=== PATIENT | male | born 1940 | race Caucasian/White ===

== ENCOUNTER 2018-02-26 20:48 | Inpatient (IN) ==
[2018-02-26] MEDS ORDERED: LASIX IV ONE (21:26)
[2018-02-26] MEDS ORDERED: DUONEB (A & A) INH ONE (21:27)
[2018-02-26 21:30] LABS: BASO# 0.03 X1000 (0.0-0.2); BASO% 0.3 % (0.0-0.8); EOS% 1.1 % (0.0-10.0); HEMATOCRIT 31.4 % (42.0-52.0); HEMOGLOBIN 10.6 g/dL (14.0-18.0); IMM GRAN# 0.02 X1000 (0.0-0.04); IMM GRAN% 0.2 % (0.0-0.5); LYMPH# 0.64 X1000 (1.2-3.4); MCH 28.7 PG (27-31); MCHC 33.8 g/dL (33-37); MCV 85.1 FL (81-99); MONO# 0.72 X1000 (0.11-0.59); MONO% 7.8 % (1.7-9.3); MPV 11.7 FL (7.4-10.4); NEUT# 7.68 X1000 (1.4-6.5); NEUT% 83.6 % (42.2-75.2); PLT 115 X1000 (130-400); RBC 3.69 XMIL (4.7-6.1); RDW 13.2 % (11.5-14.5); WBC 9.19 X1000 (4.8-10.8)
[2018-02-26 22:35] LABS: INR 1.06; PROTIME 14.3 Seconds (11.0-16.0)
[2018-02-26 22:36] LABS: PTT 36.1 Seconds (22.3-41.8)
[2018-02-26 22:37] LABS: ALBUMIN 3.2 g/dL (3.5-5.0); CALCIUM 8.2 mg/dL (8.8-10.2); CREATININE 1.7 mg/dL (0.7-1.2); POTASSIUM 3.9 mmol/L (3.5-5.1); TOTAL BILIRUBIN 0.4 mg/dL (0.20-1.00); TOTAL PROTEIN 6.3 g/dL (6.3-8.3)
--- NOTE | 2018-02-26 22:37 | Diag Imaging Result Doc PS360 ---
CHEST-2 VIEWS - 02/26/2018 INDICATION: sob COMPARISON: 05/15/2017 FINDINGS: There is cardiomegaly and pulmonary vascular congestion. There are patchy ill-defined infiltrates in both lung bases. There are small bilateral pleural effusions. IMPRESSION: Pulmonary edema. Small bilateral pleural effusions. Electronically signed by Earl Lacy 02/26/2018 10:35 PM
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
[2018-02-26 23:08] LABS: CK INDEX 2.3 (0.0-2.5); CK-MB 5.6 ng/mL (0.0-5.0)
--- NOTE | 2018-02-27 00:05 | EKG Report ---
Test Performed on : 02/26/2018 9:55:43 PM Test Reason : sob Blood Pressure : / mmHG Vent. Rate : 087 BPM Atrial Rate : 122 BPM P-R Int : 000 ms QRS Dur : 124 ms QT Int : 386 ms P-R-T Axes : 000 -06 083 degrees QTc Int : 464 ms Atrial fibrillation. Cannot rule out Inferior infarct (cited on or before 08-JAN-2011) Abnormal ECG When compared with ECG of 22-MAR-2017 07:42, Atrial fibrillation. has replaced Junctional rhythm. Vent. rate has decreased BY 47 BPM Questionable change in initial forces of Inferior leads ST no longer depressed in Anterior leads Unconfirmed Result
[2018-02-27] MEDS ORDERED: NS 2,000 ML IV ONE (00:33)
[2018-02-27] MEDS ORDERED: PNEUMOVAX 23 IM ONE (01:05)
[2018-02-27] MEDS ORDERED: LIPITOR PO SCH (09:00)
[2018-02-27] MEDS ORDERED: NORVASC PO SCH (09:00)
[2018-02-27] MEDS ORDERED: LASIX PO SCH (09:00)
[2018-02-27] MEDS: JANUVIA PO SCH (09:25)
[2018-02-27] MEDS: LASIX IV SCH ×2 (09:25→21:56)
--- NOTE | 2018-02-27 09:30 | HISTORY AND PHYSICAL ---
PRIMARY CARE PHYSICIAN: Dr. Arturo Galeano. CHIEF COMPLAINT: Shortness of breath, cough, and bilateral lower extremity edema for 3 days that progressively worsened. HISTORY OF PRESENTING ILLNESS: This is a 77-year-old male who presents to [facility] ER with complaints of a 3-day history of shortness of breath, nonproductive coughing, and bilateral lower extremity edema. When he arrived, his O2 sat on room air was 90%. His laboratory data showed a BUN of 28 and a creatinine of 1.7. He has some chronic kidney disease, but this is a little above his baseline that appears to be around 1.3 to 1.5. His proBNP was 4261. Cardiac enzymes showed a creatine kinase of 241, a CK-MB of 5.60, troponin negative at 0.081. Chest x-ray showed pulmonary edema. Small bilateral pleural effusions. So, he is being admitted for further evaluation and treatment. PAST MEDICAL HISTORY: Diabetes type 2, dyslipidemia, hypertension, coronary artery disease, chronic kidney disease stage 3, presumed CHF and atrial fibrillation. PAST SURGICAL HISTORY: CABG and heart stents x3. FAMILY HISTORY: Reviewed and noncontributory. SOCIAL HISTORY: He currently lives with family. He was a previous smoker of a pack a day for 20 years but has been quit for over 20 years. Denies any alcohol or illicit drug use. ALLERGIES: He has no known drug allergies. HOME MEDICATIONS: 1. Amlodipine/atorvastatin 10/10, 1 p.o. daily. 2. Lasix 20 mg p.o. daily. 3. Januvia 100 mg p.o. daily. 4. We will hold his p.o. Lasix at this time as he will be receiving IV Lasix. LABORATORY DATA: White blood cell count of 9.19, hemoglobin 10.6, hematocrit 31.4, platelets 115,000. PT and INR of 14.3 and 1.06. Sodium of 135, potassium 3.9, chloride 95, CO2 of 28. BUN of 28, creatinine 1.7, glucose 221, creatine kinase 241, CK-MB of 5.60 with a troponin of 0.081. ProBNP of 4261. Chest x-ray showed pulmonary edema with small bilateral pleural effusions. EKG showed atrial fibrillation at 87. REVIEW OF SYSTEMS: He denied any fever, chills, blurred vision, dizziness, chest pain. He had a nonproductive cough, shortness of breath, bilateral lower extremity edema. He denied any abdominal pain, constipation, diarrhea, burning or hurting with urination. PHYSICAL EXAMINATION: VITAL SIGNS: On arrival, he had a temperature of 98.2, pulse of 89, respirations 20, blood pressure 158/70, saturating 90% on room air. Currently sating 93% to 96% on 3 L via nasal cannula. GENERAL: This is a 77-year-old male who is sitting up in the bed and answers questions appropriately. HEENT: Normocephalic, atraumatic. Normal ENT inspection. Oropharynx and nares are clear. EYES: Pupils are equal, round, and reactive to light and accommodation. Extraocular movements are intact. NECK: Normal inspection. Normal range of motion. LUNGS: With decreased breath sounds bilaterally. Equal lung expansion. Chest wall movement noted. O2 via nasal cannula currently in use. HEART: Irregular rhythm but rate controlled with atrial fibrillation in the 80s. No murmurs, rubs or gallops. ABDOMEN: Soft, nontender, nondistended. Bowel sounds are present x4 quadrants. MUSCULOSKELETAL: He has 5/5 strength x4 extremities. He is noted to have 2+ pitting edema to bilateral lower extremities. NEUROLOGICAL: The cranial nerves 2-12 appear grossly intact. ASSESSMENT: 1. An acute congestive heart failure exacerbation. 2. [id number] kidney disease, stage 3. 3. Dyspnea. 4. Diabetes, type 2. PLAN: He was admitted to the medical unit at [facility], placed on telemetry, O2 per protocol, healthy heart diet. Echocardiogram will be obtained today. He is on Lasix 40 mg IV q.12. We will continue his home medications as previously identified. We will recheck a CBC, BMP in the a.m. Dictated by CHERYLE Aguirre for Geo Jeff MD cc: CHERYLE Aguirre MD Bharat K. Vakharia, MD
[2018-02-27 11:02] LABS: CALCIUM 8.5 mg/dL (8.8-10.2); CREATININE 1.5 mg/dL (0.7-1.2); POTASSIUM 3.9 mmol/L (3.5-5.1)
--- NOTE | 2018-02-27 11:05 | Diag Imaging Result Doc PS360 ---
EXAM: CHEST-2 VIEWS HISTORY: hypoxia TECHNIQUE: Chest two views COMPARISON: 02/26/2018 FINDINGS: There are small bilateral pleural effusions. There is mild central vascular distention. Sternal wires are present. The heart is borderline mildly prominent. There is atelectasis and possibly underlying infiltrates in the lung bases. The overall appearance is similar to the prior exam. IMPRESSION: Stable chest. Electronically signed by Esa Hooper 02/27/2018 11:03 AM
[2018-02-27] MEDS: MELATONIN PO SCH (21:56)
[2018-02-27] MEDS: LOPRESSOR PO SCH (21:56)
[2018-02-27] MEDS: ELIQUIS PO SCH (21:56)
--- NOTE | 2018-02-28 00:02 | ECHO REPORT ---
ORDER DATE: 02/27/2018 MEASUREMENTS: Left ventricular end-diastolic diameter 6.2, septal thickness 0.8, aortic root 3.5, left atrium 3.6. SUMMARY: 1. Technically difficult study due to limited acoustic window quality. 2. Aortic valve is trileaflet and opens normally on 2-dimensional images. Peak gradient across the aortic valve is 15 mmHg. Mitral, tricuspid, and pulmonic valves are without evidence of structural abnormality with mild mitral regurgitation and mild tricuspid regurgitation. The estimated systolic PA pressure by Doppler is 80 mmHg, suggesting severe pulmonary hypertension. The aortic root is normal in size. 3. Mild left ventricular enlargement with normal wall thickness demonstrated. Estimated left ventricular ejection fraction is approximately 35% in the setting of global hypokinesis. The left atrium is upper normal in size. The right atrium and right ventricle are normal in size with grossly preserved right ventricular systolic function. 4. No pericardial effusion. 5. Left pleural effusion noted. 6. Inferior vena cava not well demonstrated. CONCLUSIONS: 1. Technically difficult study. 2. Mild mitral regurgitation. 3. Mild tricuspid regurgitation with severe pulmonary hypertension by Doppler. 4. Mild left ventricular enlargement with estimated left ventricular ejection fraction 35%. 5. Left pleural effusion. cc: MD Emperatriz Richards CRNP
[2018-02-28] MEDS ORDERED: BLISTEX MEDICATED BERRY LIP BALM TOP ONE (01:51)
--- NOTE | 2018-02-28 04:18 | PROGRESS NOTE ---
DATE: 02/27/2018 The patient seen and examined by me [id number]. This patient came in complaining of shortness of breath, and he has been diagnosed with acute CHF exacerbation. He was discharged from [facility] last 03/29/2017, and then he visited Dr. Corley at his office on 04/05/2017. At that time, he was discharged with aspirin, Eliquis, metformin, glimepiride, losartan and metoprolol. This patient has not been taking most of those medications, and he is not quite sure why. I will put this patient back on Eliquis 2.5 mg p.o. twice a day because of his history of paroxysmal atrial fibrillation. Also I will put this patient back on metoprolol 25 mg twice a day to see how he does. I will hold any kind of ATIF inhibitor or ARBS because of his acute on chronic kidney disease. I will add aspirin to his medications as well. I will continue with furosemide twice a day because he has some pleural effusion and shortness of breath mostly at the lung bases. For now, he is full code. We already requested his information from his primary care doctor's office Dr. Galeano and Dr. Corley which is his world history teacher. cc: Geo Jeff MD
[2018-02-28 06:03] LABS: BASO# 0.02 X1000 (0.0-0.2); BASO% 0.2 % (0.0-0.8); EOS# 0.19 X1000 (0.0-0.7); HEMATOCRIT 29.7 % (42.0-52.0); HEMOGLOBIN 9.7 g/dL (14.0-18.0); IMM GRAN# 0.01 X1000 (0.0-0.04); IMM GRAN% 0.1 % (0.0-0.5); LYMPH# 0.69 X1000 (1.2-3.4); LYMPH% 7.2 % (20.5-51.1); MCH 28.3 PG (27-31); MCHC 32.7 g/dL (33-37); MCV 86.6 FL (81-99); MONO# 0.79 X1000 (0.11-0.59); MONO% 8.2 % (1.7-9.3); NEUT# 7.89 X1000 (1.4-6.5); NEUT% 82.3 % (42.2-75.2); PLT 217 X1000 (130-400); RBC 3.43 XMIL (4.7-6.1); RDW 13.1 % (11.5-14.5); WBC 9.59 X1000 (4.8-10.8)
[2018-02-28 06:33] LABS: CHOLESTEROL 111 mg/dL (0-200); HDL 53 mg/dL (35-55); LDL 41 mg/dL; TRIGLYCERIDES 85 mg/dL (39-160); VLDL 17 mg/dL
[2018-02-28 06:35] LABS: CALCIUM 8.7 mg/dL (8.8-10.2); CREATININE 1.6 mg/dL (0.7-1.2); POTASSIUM 4.1 mmol/L (3.5-5.1); TOTAL BILIRUBIN 0.4 mg/dL (0.20-1.00); TOTAL PROTEIN 6.8 g/dL (6.3-8.3)
--- NOTE | 2018-02-28 08:14 | Diag Imaging Result Doc PS360 ---
CHEST-PORTABLE - 02/28/2018 INDICATION: SOB COMPARISON: 02/27/2018 FINDINGS: Stable sternotomy wires. Heart size remains normal. Stable ill-defined central interstitial infiltrates bilaterally. Stable trace pleural effusions. No new infiltrates. IMPRESSION: No change from prior. Electronically signed by Earl Lacy 02/28/2018 8:11 AM
[2018-02-28] MEDS ORDERED: HYDROCHLOROTHIAZIDE PO SCH (09:00)
[2018-02-28] MEDS ORDERED: TRESIBA FLEXTOUCH U-100 SUBQ SCH (09:00)
[2018-02-28] MEDS ORDERED: COZAAR PO SCH (09:00)
[2018-02-28] MEDS: LOPRESSOR PO SCH ×2 (09:38→18:16)
[2018-02-28] MEDS: JANUVIA PO SCH (09:38)
[2018-02-28] MEDS: ELIQUIS PO SCH ×2 (09:39→21:21)
[2018-02-28] MEDS: LASIX IV SCH ×2 (09:39→18:16)
[2018-02-28] MEDS: NORVASC PO SCH (09:39)
[2018-02-28] MEDS: ASPIRIN PO SCH (09:39)
--- NOTE | 2018-02-28 10:25 | PROGRESS NOTE ---
DATE: 02/28/2018 SUBJECTIVE: Patient is complaining of shortness of breath. Today, this patient is having wheezing on top of his prolonged expiratory phase and some crackles mostly at the bases and midlung. He has a history of AFib. We ordered an echocardiogram that showed an ejection fraction of 35% in a setting of global hypokinesis. Last year around March, the ejection fraction was 40% to 45%. 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 Corley, and it looks like he has not been taking his medications as prescribed. Also, we contacted Dr. Galeano, to see what medications he has been on. He was missing his aspirin, Eliquis, metoprolol, and I think ARBs. Even though, we have been diuresing this patient, and we have a negative balance of 2.9 L so far, he is feeling worse. As per the patient, he has been told before, a long time ago, that he had COPD. He is wheezing today, and I read the H and P from before and nobody mentioned any history of COPD. I will put him on a trial of steroids, breathing treatment, and continue with the Ventimask for his oxygen. I will contact Cardiology Department to evaluate this patient as well since his ejection fraction is getting worse apparently. OBJECTIVE: Vital Signs: Temperature 98.1 degrees, pulse 80, respiratory rate 20, blood pressure 149/74, oxygen saturation 97% on a Venturi mask. HEENT: Head normocephalic. No trauma. PERRLA. Neck: Supple. He does have JVD. Central trachea. Chest: Decreased breath sounds globally with prolonged expiratory phase and expiratory wheezing and scattered, mid thoracic area and lower thoracic area crackles. Cardiovascular: Irregularly, irregular rate and rhythm. Abdomen: Soft, nontender, nondistended. No hepatosplenomegaly. Extremities: He has edema. No clubbing, no cyanosis. Neurological: Alert and oriented x3. No focal deficits. LABORATORY: WBC 9.5, hemoglobin 9.7, hematocrit 29.7, platelets 217,000. Sodium 134, potassium 4.1, chloride 95, bicarbonate 28, BUN 29 creatinine 1.6, glucose 180, calcium 8.7. ProBNP 4721, albumin 3. ASSESSMENT AND PLAN: 1. Congestive heart failure exacerbation. I will continue with Lasix twice a day intravenously. Echocardiogram has been performed and showed a worsening of his condition. His ejection fraction of 35% with global hypokinesis. He has a history of atrial fibrillation and he was not taking his medications. I have placed this patient back on metoprolol and blood thinners, aspirin. I have been holding a little bit the angiotensin-receptor blockers/ATIF inhibitors because of his acute on chronic kidney disease, but likely we can restart this medication soon. 2. Acute on chronic kidney disease. As above. I will monitor. Creatinine is getting better. BUN increased compared with yesterday, but stable. This is his baseline. 3. Shortness of breath, likely a combination of congestive heart failure and reactive airway. As per the patient, he used to smoke 40 years ago, but he stopped. Somebody told him that he has, at that time, COPD, but he is not getting treatment at home. Anyway, he is having some problems breathing, and he is wheezing and short of breath. I will put him on a trial of steroids to see how he does and breathing treatment as well. 4. Type 2 diabetes. Continue with the same management. 5. Atrial fibrillation. Continue with the same management. He has not been taking his medications as prescribed. 6. Hypertension, stable. 7. Dyslipidemia, aware. cc: Geo Jeff MD
[2018-02-28] MEDS: SOLU-MEDROL IV SCH ×2 (11:15→17:03)
[2018-02-28] MEDS: ZOSYN 3.375 GM in NS 50 ML IV SCH ×3 (11:15→22:25)
[2018-02-28] MEDS: XOPENEX NEB INH SCH ×4 (11:50→22:40)
[2018-02-28] MEDS: ATROVENT NEB INH SCH ×4 (11:50→22:40)
[2018-02-28] MEDS: ZYVOX 600 MG/D5W 600 MG/300 ML IVPB IV SCH ×2 (12:27→23:18)
--- NOTE | 2018-02-28 19:07 | CARDIOLOGY CONSULTATION ---
DATE: 02/28/2018 REQUESTING PHYSICIANS: Hospitalist service. REASON FOR CONSULTATION: Dyspnea, congestive heart failure, coronary heart disease. HISTORY OF PRESENT ILLNESS: Mr. Muhammad is a 77-year-old male who presented to the emergency room on February 26 with complaints of a few days of increasing dyspnea, nonproductive cough, and swelling of the lower extremities. Upon presentation, they did a pro-BNP level that came back elevated at 4261 and subsequently 4271. They checked troponin levels. They were 0.081. EKG initially showed sinus rhythm with some PACs. The EKG was initially reported as atrial fibrillation with controlled rate. There is a lot of artifact on the EKG. At any rate, the patient has been started in diuretics for heart failure because a chest x-ray showed pulmonary edema with small bilateral pleural effusions. He is also being treated with bronchodilators, steroids and antibiotics for decompensated COPD and possible pneumonia. The patient denies having any pain. His swelling is still present in the legs, not as bad. Since admission, he feels better today. PAST MEDICAL HISTORY: Positive for: 1. Coronary heart disease, severe. He has had a previous bypass. He was seen by Dr. Corley last time at the office in March 2017. The patient had had a big hiatus where he did not see any doctor. 2. He has diabetes mellitus type 2. 3. Hypertension. 4. Paroxysmal atrial fibrillation. 5. Carotid artery disease. 6. Previous falls, complains of dizziness. 7. COPD. 8. He also has chronic kidney disease. PAST SURGICAL HISTORY: Besides the bypass, he has had prostate surgery and cholecystectomy. SOCIAL HISTORY: He is . He has no children. He lives with his . He used to work for [employer]. He retired about 3-4 years ago. He has not smoked in awhile. FAMILY HISTORY: Noncontributory. HOME MEDICATIONS AT TIME OF THIS ADMISSION: 1. Amlodipine/atorvastatin 10/10 daily. 2. Furosemide 20 mg daily. 3. Insulin Tresiba 20 units daily. 4. Losartan/hydrochlorothiazide 50/12.5 daily. 5. Januvia 50 mg daily. ALLERGIES: He is not allergic to anything. REVIEW OF SYSTEMS: He is somewhat feeble. He does not do much physically speaking. He has developed aggressive swelling, cough and dyspnea lately. He was admitted to this hospital in March 2017 with atrial fibrillation, heart failure and pneumonia which required antibiotics for awhile. PHYSICAL EXAMINATION: Vital Signs: Blood pressure is 148/65, temperature 97.5, pulse 63, respirations 20. General: He is awake and alert. He is hard of hearing. HEENT: Unremarkable. Chest: Diminished breath sounds bilaterally with bilateral rhonchi. Some end expiratory wheezes. Heart sounds are slightly irregular and distant. Abdomen: Soft and nontender. Extremities: Show 1 to 2+ soft edema, pale. Extremities are somewhat cool. Pulses are diminished. Neurological: He follows commands. He is somewhat hard of hearing. BLOOD WORK: Sodium is 134, potassium 4.1, BUN 29, creatinine 1.6. IMPRESSION: 1. The patient presented to the hospital with what appears to be congestive heart failure, probably systolic. Previous echocardiogram has shown an ejection fraction of 60%. Now his echocardiogram during this time shows an ejection fraction of 35%. 2. Paroxysmal/permanent atrial fibrillation. 3. Chronic obstructive pulmonary disease decompensation, possible bronchitis, infectious. 4. Chronic kidney disease. 5. Previous multivessel coronary bypass surgery. 6. History of hypertension. 7. History of hyperlipidemia. 8. Diabetes mellitus type 2. RECOMMENDATIONS: At this point in time we will try to optimize his medical therapy. It seems like the main problem here is COPD decompensation, and that may be affecting his cardiovascular system. We will follow him and see how things go. At this point in time we are going to up- titrate his Lasix to compensate for his renal dysfunction, and we will see how he evolves over the next few days. cc: Mark Kidd MD
[2018-02-28] MEDS: MELATONIN PO SCH (21:20)
[2018-02-28] MEDS: LIPITOR PO SCH (21:20)
[2018-02-28] MEDS: HUMULIN R SUBQ SCH (21:21)
[2018-03-01] MEDS: TRESIBA FLEXTOUCH U-100 SUBQ SCH ×2 (00:49→21:15)
[2018-03-01] MEDS: HUMULIN R SUBQ SCH ×2 (00:50→06:26)
[2018-03-01] MEDS: SOLU-MEDROL IV SCH ×2 (01:29→09:38)
[2018-03-01] MEDS: LOPRESSOR PO SCH ×3 (01:29→17:38)
[2018-03-01] MEDS: ATROVENT NEB INH SCH ×6 (04:00→23:11)
[2018-03-01] MEDS: XOPENEX NEB INH SCH ×6 (04:00→23:11)
[2018-03-01] MEDS: LASIX IV SCH (05:52)
[2018-03-01] MEDS: ZOSYN 3.375 GM in NS 50 ML IV SCH (05:52)
[2018-03-01] MEDS: HUMULIN R (PARKWAY) SUBQ SCH ×4 (06:37→21:16)
[2018-03-01 06:53] LABS: CALCIUM 8.4 mg/dL (8.8-10.2); CREATININE 2.1 mg/dL (0.7-1.2); HEMATOCRIT 25.4 % (42.0-52.0); HEMOGLOBIN 8.5 g/dL (14.0-18.0); LYMPH# 0.26 X1000 (1.2-3.4); LYMPH% 4.3 % (20.5-51.1); MCH 28.1 PG (27-31); MCHC 33.5 g/dL (33-37); MCV 83.8 FL (81-99); MONO# 0.13 X1000 (0.11-0.59); MONO% 2.2 % (1.7-9.3); MPV 10.1 FL (7.4-10.4); NEUT# 5.59 X1000 (1.4-6.5); NEUT% 93.5 % (42.2-75.2); PLT 196 X1000 (130-400); POTASSIUM 4.4 mmol/L (3.5-5.1); RBC 3.03 XMIL (4.7-6.1); RDW 12.4 % (11.5-14.5); WBC 5.98 X1000 (4.8-10.8)
[2018-03-01 07:49] LABS: LYMPHS 8 % (21-51); MONO 2 % (1-9); SEGS 90 % (42-75)
[2018-03-01 07:50] LABS: ANISOCYTOSIS 1+; HYPOCHROM 1+; MICROCYTOSIS 1+
[2018-03-01] MEDS: NORVASC PO SCH (09:38)
[2018-03-01] MEDS: JANUVIA PO SCH (09:38)
[2018-03-01] MEDS: ELIQUIS PO SCH ×2 (09:38→21:17)
[2018-03-01] MEDS: ASPIRIN PO SCH (09:38)
[2018-03-01] MEDS: ZYVOX 600 MG/D5W 600 MG/300 ML IVPB IV SCH (09:39)
[2018-03-01] MEDS ORDERED: PRILOSEC PO ONE (12:13)
--- NOTE | 2018-03-01 14:10 | PROGRESS NOTE ---
DATE: 03/01/2018 SUBJECTIVE: The patient denies having any acute complaints this morning. He feels much better as compared to when he came in to the hospital. OBJECTIVE: Vital signs: Temperature is 97.5 degrees, pulse 66 per minute, respiratory rate 20 per minute, blood pressure 141/65, pulse oximetry 97% on 5 L of oxygen per nasal cannula. General: The patient is alert and oriented x3. He does not appear to be in any acute distress. Cardiovascular: First and second heart sounds are audible without any murmurs or gallops. Respiratory: Bilateral lung air entry is moderately decreased, and there are a few rales at bases bilaterally. No wheezing is present. Gastrointestinal: Abdomen is soft and nondistended. It is nontender on palpation and normal bowel sounds at present. Musculoskeletal No deformities are present. DIAGNOSTIC DATA: CBC showed hemoglobin of 8.5, hematocrit 25.4. The rest of the CBC is nondiagnostic. In comparison, his hemoglobin and hematocrit were 9.7 and 29.7 yesterday. His hemoglobin was 10.6 and hematocrit 31.4 on 02/26/2018. Chemistry shows creatinine of 2.1, and that is up from 1.5 on 02/27/2018. Chest x-ray done yesterday showed stable trace bilateral pleural effusions and no infiltrates. IMPRESSION: 1. Acute systolic congestive heart failure with left ventricular ejection fraction estimated at 35%. 2. Chronic atrial fibrillation. 3. Chronic obstructive pulmonary disease. 4. Acute kidney injury on chronic kidney disease stage 3. 5. Type 2 diabetes mellitus. 6. Hypertension. 7. Dyslipidemia. 8. Anemia that has been chronic but that is now worse during this hospital admission. PLAN: The patient has been on IV Lasix, and I am going to convert that to oral Lasix 40 mg daily since the patient has developed acute kidney injury and his creatinine levels have gone up to 2.1. We are not going to give him any IV fluids, however, because of congestive heart failure and with low ejection fraction. Furthermore, he has developed anemia during this hospital admission and because of this, I am going to discontinue aspirin. I would continue Eliquis, however, and start him on omeprazole 40 mg orally once daily. We will monitor his hemoglobin and hematocrit and have a repeat CBC along with BMP and magnesium levels tomorrow morning. The patient has been on Zosyn and Zyvox intravenously, but I do not see any reason why he should be on any antibiotics, and therefore, I am going to discontinue that. His COPD has been stable, and we are going to continue with albuterol/Atrovent nebulizer treatment, but I am going to discontinue Solu Medrol IV. His chronic atrial fibrillation and diabetes along with hypertension and dyslipidemia have been stable, and therefore, we are going to continue with current care. Further recommendations will be given as per outcome of these measures. cc: Christopher Cook MD
[2018-03-01] MEDS: APRESOLINE PO SCH (17:38)
[2018-03-01] MEDS: ISORDIL PO SCH (17:38)
[2018-03-01] MEDS: MELATONIN PO SCH (21:16)
[2018-03-01] MEDS: LIPITOR PO SCH (21:17)
--- NOTE | 2018-03-02 00:17 | CARDIOLOGY PROGRESS NOTE ---
DATE: 03/01/2018 SUBJECTIVE: Mr. Muhammad reports roughly stable shortness of breath. OBJECTIVE: He is afebrile. Heart rate is 61, his blood pressure is 140/67. Systolics have been in the 130s to 140s it appears. His I's and O's appear some negative on the order of 2.7 L for the course of the hospitalization.General: He is in no acute distress. Cardiovascular: He sounds to be in a regular rate and rhythm. I do not hear any obvious murmurs. He has trace to 1+ bilateral lower extremity edema. His chest exam sounds clear. He has stable trace pleural effusions and stable ill-defined interstitial infiltrates. That was on a study yesterday. LABORATORY DATA: Demonstrated a proBNP yesterday at 4271, his BUN and creatinine are at 45 and 2.1 which are slightly elevated. ASSESSMENT: Mr. Muhammad is a 77-year-old gentleman who presented with a reduced ejection fraction, chronic obstructive pulmonary disease exacerbation and chronic kidney disease. His BUN and creatinine ratio have increased with diuresis. I agree with backing off the level of the diuresis at this point. He is on a low dose of beta peter with metoprolol 12.5 q.8 hours. Considering his renal dysfunction I will initiate him on some hydralazine and nitrates. His blood pressure has been in the 130s to 140s. cc: Gabriele Perez MD
[2018-03-02] MEDS: LOPRESSOR PO SCH ×4 (01:32→17:18)
[2018-03-02] MEDS: ATROVENT NEB INH SCH ×5 (03:16→21:35)
[2018-03-02] MEDS: XOPENEX NEB INH SCH ×5 (03:16→21:35)
[2018-03-02] MEDS: PRILOSEC PO SCH (06:29)
[2018-03-02] MEDS: HUMULIN R (PARKWAY) SUBQ SCH ×4 (06:29→22:54)
[2018-03-02 06:34] LABS: HEMATOCRIT 25.4 % (42.0-52.0); HEMOGLOBIN 8.5 g/dL (14.0-18.0); IMM GRAN# 0.02 X1000 (0.0-0.04); IMM GRAN% 0.2 % (0.0-0.5); LYMPH# 0.43 X1000 (1.2-3.4); LYMPH% 3.9 % (20.5-51.1); MCH 28.1 PG (27-31); MCHC 33.5 g/dL (33-37); MCV 83.8 FL (81-99); MONO# 0.51 X1000 (0.11-0.59); MONO% 4.7 % (1.7-9.3); MPV 10.4 FL (7.4-10.4); NEUT# 9.99 X1000 (1.4-6.5); NEUT% 91.2 % (42.2-75.2); PLT 209 X1000 (130-400); RBC 3.03 XMIL (4.7-6.1); RDW 12.6 % (11.5-14.5); WBC 10.95 X1000 (4.8-10.8)
[2018-03-02 06:50] LABS: CALCIUM 8.5 mg/dL (8.8-10.2); CREATININE 2.3 mg/dL (0.7-1.2); MAGNESIUM 1.6 mg/dL (1.5-2.7); POTASSIUM 4.5 mmol/L (3.5-5.1)
[2018-03-02 07:09] LABS: LYMPHS 4 % (21-51); MONO 2 % (1-9); SEGS 94 % (42-75)
[2018-03-02] MEDS: ISORDIL PO SCH ×3 (08:40→17:19)
[2018-03-02] MEDS: LASIX PO SCH (08:41)
[2018-03-02] MEDS: APRESOLINE PO SCH ×3 (08:41→17:19)
[2018-03-02] MEDS: JANUVIA PO SCH (08:41)
[2018-03-02] MEDS: ELIQUIS PO SCH ×2 (08:41→22:18)
[2018-03-02] MEDS: NORVASC PO SCH (08:41)
--- NOTE | 2018-03-02 13:05 | PROGRESS NOTE ---
DATE: 03/02/2018 SUBJECTIVE: The patient denies having any acute complaints and feels much better this morning. OBJECTIVE: Vital Signs: Temperature 98.4 degrees, pulse 62 per minute, respiratory rate 20 per minute, blood pressure 138/64, pulse oximetry 100% on 2.5 L of oxygen via nasal cannula. General: The patient is alert and oriented x3. He does not appear to be in any acute distress. Cardiovascular System: First and second heart sounds are audible without any murmurs or gallops. Respiratory System: No respiratory distress noted. Bilateral lung air entry is good without any rales or rhonchi. Gastrointestinal system: Abdomen is soft and nondistended. Normal bowel sounds are present. DIAGNOSTIC DATA: CBC showed hemoglobin of 8.5 and hematocrit 25.4. In comparison, his CBC was exactly showing the same hemoglobin and hematocrit yesterday. His basic metabolic panel showed sodium levels of 128 and BUN 59 and creatinine 2.3, along with glucose levels of 247. The sodium levels actually went down yesterday from 132 to this morning 128. IMPRESSION: 1. Acute systolic congestive heart failure with left ventricular ejection fraction estimated at 35%. His congestive heart failure seems to have improved, and he appears to be slightly on the drier tender naphthalene side after which Lasix dosage was decreased. 2. Chronic atrial fibrillation that has remained stable. 3. Chronic obstructive pulmonary disease that is also stable. 4. Acute kidney injury on chronic kidney disease stage III. 5. Type 2 diabetes mellitus. 6. Hypertension. 7. Anemia that has been stable since yesterday. 8. Hyponatremia that is most likely secondary to intravenous diuretics. PLAN: 1. The patient appears to be stable as far as his congestive heart failure is concerned, and we will therefore continue with oral Lasix 40 mg daily. He does have some dehydration and acute kidney injury secondary to diuretics, but we will keep him like that and keep an eye on his fluid status. His atrial fibrillation and COPD have remained stable, and his diabetes and hypertension along with dyslipidemia are also stable, for which he will continue with current medications. He does have anemia that is now stable, because of which we are not going to take any further action. He will continue with Eliquis, and his aspirin has been discontinued. He will continue with omeprazole 40 mg daily for any possible gastritis. 2. The patient has hyponatremia that could be secondary to IV diuretics that he was getting. He has now a decreased dose of furosemide 40 mg daily, however. I am going to have repeat CBC and BMP in the morning tomorrow to monitor his hemoglobin and hematocrit, along with renal function and electrolytes. Further recommendations will be given as per hospital course. cc: Christopher Cook MD
[2018-03-02] MEDS: MELATONIN PO SCH (22:18)
[2018-03-02] MEDS: LIPITOR PO SCH (22:18)
[2018-03-02] MEDS: TRESIBA FLEXTOUCH U-100 SUBQ SCH (23:27)
[2018-03-03] MEDS: LOPRESSOR PO SCH ×3 (01:55→20:47)
[2018-03-03] MEDS: ATROVENT NEB INH SCH ×4 (03:10→21:04)
[2018-03-03] MEDS: XOPENEX NEB INH SCH ×4 (03:10→21:04)
[2018-03-03] MEDS: PRILOSEC PO SCH ×2 (05:41→06:20)
[2018-03-03 06:33] LABS: EOS# 0.11 X1000 (0.0-0.7); EOS% 1.1 % (0.0-10.0); HEMATOCRIT 28.1 % (42.0-52.0); HEMOGLOBIN 9.4 g/dL (14.0-18.0); IMM GRAN# 0.02 X1000 (0.0-0.04); IMM GRAN% 0.2 % (0.0-0.5); LYMPH# 0.68 X1000 (1.2-3.4); LYMPH% 6.6 % (20.5-51.1); MCHC 33.5 g/dL (33-37); MCV 83.6 FL (81-99); MONO# 0.71 X1000 (0.11-0.59); MONO% 6.9 % (1.7-9.3); NEUT# 8.77 X1000 (1.4-6.5); NEUT% 85.2 % (42.2-75.2); PLT 247 X1000 (130-400); RBC 3.36 XMIL (4.7-6.1); RDW 13.1 % (11.5-14.5); WBC 10.29 X1000 (4.8-10.8)
[2018-03-03] MEDS: HUMULIN R (PARKWAY) SUBQ SCH ×4 (06:41→20:35)
[2018-03-03 06:56] LABS: CALCIUM 8.3 mg/dL (8.8-10.2); CREATININE 2.1 mg/dL (0.7-1.2); MAGNESIUM 1.8 mg/dL (1.5-2.7); POTASSIUM 4.2 mmol/L (3.5-5.1)
[2018-03-03 07:37] LABS: LYMPHS 2 % (21-51); MONO 5 % (1-9); SEGS 93 % (42-75)
[2018-03-03] MEDS: APRESOLINE PO SCH ×3 (10:00→20:46)
[2018-03-03] MEDS: ISORDIL PO SCH ×4 (10:00→20:47)
[2018-03-03] MEDS: NORVASC PO SCH (10:00)
[2018-03-03] MEDS: JANUVIA PO SCH (10:00)
[2018-03-03] MEDS: LASIX PO SCH (10:00)
[2018-03-03] MEDS: ELIQUIS PO SCH ×2 (10:03→20:46)
[2018-03-03] MEDS ORDERED: SAMSCA PO ONE (11:11)
--- NOTE | 2018-03-03 12:15 | PROGRESS NOTE ---
DATE: 03/03/2018 SUBJECTIVE: Patient denies having any acute complaints this morning. He does feel generalized weakness. OBJECTIVE: Vital Signs: Temperature 97.5 degrees, pulse 58 per minute, respiratory rate 20 per minute, blood pressure 139/74, pulse ox 97% on 3 L of oxygen via nasal cannula. General: Patient is alert and oriented x3. He does not appear to be in any acute distress. Cardiovascular System: First and second heart sounds are audible without any murmurs or gallops. Respiratory System: No respiratory distress noted. Bilateral lung air entry is moderately decreased, but there are no rales or rhonchi present on auscultation. Gastrointestinal: Abdomen is soft and nondistended. Normal bowel sounds are present. DIAGNOSTIC DATA: CBC shows hemoglobin of 9.4 and hematocrit 28.1. In comparison, his hemoglobin and hematocrit were 8.5 and 25.4 yesterday. Chemistry showed sodium levels of 126, that is down from 128 yesterday. His BUN and creatinine are stable at 62 and 2.1. IMPRESSION: 1. Acute systolic congestive heart failure with left ventricular ejection fraction estimated at 35%. 2. Hyponatremia. That appears to be secondary to diuretics. 3. Chronic atrial fibrillation. That has been stable. 4. Chronic obstructive pulmonary disease. That is also stable. 5. Acute kidney injury on chronic stage 3 kidney disease. That is at least partly prerenal since he is getting diuretics for his acute congestive heart failure. 6. Type 2 diabetes mellitus. 7. Hypertension. 8. Anemia. That is stable and appears chronic. PLAN: The patient appears to be euvolemic and therefore, we are going to continue him with current medications for his congestive heart failure as per Cardiology. He does have hyponatremia likely secondary to diuretics and has received a dose of Samsca as per Cardiology yesterday. We are going to continue to monitor his electrolytes. His atrial fibrillation and COPD have also been stable and we are going to continue with routine medications. His diabetes and hypertension, along with anemia are also currently stable. He will continue with Eliquis for thromboembolism prophylaxis because of his chronic atrial fibrillation. Further recommendations will be given as per hospital course. cc: Christopher Cook MD
--- NOTE | 2018-03-03 14:17 | CARDIOLOGY PROGRESS NOTE ---
DATE: [RSERVDT CHIEF COMPLAINT: Shortness of breath and cough. SUBJECTIVE: Mr. Muhammad is breathing somewhat more comfortably. He is not having any chest pain. OBJECTIVE: Vital Signs today: Blood pressure is 139/74, temperature 97.5, pulse 58, respirations 20. General: He is awake and alert. In no distress. HEENT: Unremarkable. Chest: Shows bilateral wheezes, bilateral rhonchi, although he appears to be a little less congested than a couple of days ago. Heart sounds are regular and rhythmic. Telemetry shows sinus rhythm. Abdomen: Nontender. Extremities: Show no edema. Neurological: He follows commands, moves four extremities. BLOOD WORK: Today, his sodium is 126, potassium 4.2, BUN 62, creatinine 2.1. Hemoglobin is 9.4, white cell count 10,290. IMPRESSION: 1. The patient who presented with increasing dyspnea, likely due to chronic obstructive pulmonary disease exacerbation and bronchitis. 2. The patient has chronic systolic heart failure. 3. Paroxysmal atrial fibrillation. Right now he is in sinus rhythm. 4. History of severe coronary heart disease with previous bypass surgery. 5. History of hypertension. 6. History of diabetes mellitus type 2. 7. Hyponatremia. RECOMMENDATIONS: At this point in time I will put in an order for tolvaptan 30 mg to try to correct his hyponatremia. We will see how he does. The patient really needs to stay in the hospital for a few days until his condition stabilizes. We will be happy to follow him along. cc: Mark Kidd MD
[2018-03-03] MEDS: TRESIBA FLEXTOUCH U-100 SUBQ SCH (20:46)
[2018-03-03] MEDS: MELATONIN PO SCH (20:46)
[2018-03-03] MEDS: LIPITOR PO SCH (20:46)
[2018-03-04] MEDS: XOPENEX NEB INH SCH ×4 (03:25→22:44)
[2018-03-04] MEDS: ATROVENT NEB INH SCH ×4 (03:25→22:44)
[2018-03-04] MEDS: LOPRESSOR PO SCH ×3 (04:37→21:27)
[2018-03-04] MEDS: HUMULIN R (PARKWAY) SUBQ SCH ×4 (06:03→21:25)
[2018-03-04] MEDS: PRILOSEC PO SCH (06:09)
[2018-03-04 07:49] LABS: CALCIUM 8.6 mg/dL (8.8-10.2); CREATININE 1.9 mg/dL (0.7-1.2); POTASSIUM 4.3 mmol/L (3.5-5.1)
[2018-03-04] MEDS: ISORDIL PO SCH ×3 (10:23→18:42)
[2018-03-04] MEDS: ELIQUIS PO SCH ×2 (10:23→21:27)
[2018-03-04] MEDS: JANUVIA PO SCH (10:24)
[2018-03-04] MEDS: LASIX PO SCH (10:24)
[2018-03-04] MEDS: NORVASC PO SCH (10:24)
[2018-03-04] MEDS: APRESOLINE PO SCH ×3 (10:25→18:42)
--- NOTE | 2018-03-04 11:36 | PROGRESS NOTE ---
DATE: 03/04/2018 SUBJECTIVE: Patient reports breathing better. No chest pain. No chest discomfort. No chest pressure. OBJECTIVE: Vital Signs: Temperature 97.3 degrees, heart rate 76, respiratory rate 18, blood pressure 163/63, O2 saturation 98% 2 L nasal cannula. General Examination: This is a 77-year-old male, lying in bed, in no acute distress. HEENT: Head is normocephalic. Mucous membranes dry. Neck: No JVD noted. No carotid bruits. No lymphadenopathy. No thyromegaly. Cardiovascular: S1, S2 heard. No murmurs, gallops, or rubs. Regular rate and rhythm. Respiratory: Decreased air entry globally, but there are no rales, no rhonchi noted in both pulmonary bases. Patient is not using any accessory muscles or having work of breathing. Abdomen: Soft, nontender to palpation. Nondistended. Bowel sounds present. No organomegaly. Extremities: No clubbing, cyanosis, or edema. Peripheral pulses present in both legs. Neurological: Patient alert and oriented x3. Moves 4 extremities. LABORATORY DATA: There are no labs from today except BMP which shows creatinine 1.9. ASSESSMENT AND PLAN: 1. Acute systolic congestive heart failure with ejection fraction of 35%. The patient appears to be euvolemic. The patient is on Lasix 40 mg p.o. daily. Cardiology is following this patient. We will follow recommendations. 2. Hyponatremia secondary to diuretics. Patient received 1 dose of Samsca and sodium is almost back to normal. We will check BMP. We will go from there. 3. Chronic atrial fibrillation. Heart rate has been well controlled. We will continue with the same management. 4. COPD. Not on any exacerbation. We will provide breathing treatments if needed only. 5. Acute on chronic kidney disease stage 3. Creatinine is around baseline. We will continue to monitor. 6. Diabetes mellitus type 2. Patient is on sliding scale insulin and Accu-Chek before meals and also at bedtime. 7. Hypertension. Blood pressure is under control. We will continue with the same management. 8. Anemia of chronic disease, stable. 5. Disposition. I think this patient is euvolemic. The patient has received 1 dose of Samsca for hyponatremia. Now patient is doing better. I have encouraged him to participate in physical therapy. We will continue to monitor this patient closely. cc: Skip Powers MD [facility]
[2018-03-04] MEDS: TRESIBA FLEXTOUCH U-100 SUBQ SCH (21:26)
[2018-03-04] MEDS: MELATONIN PO SCH (21:26)
[2018-03-04] MEDS: LIPITOR PO SCH (21:26)
[2018-03-05] MEDS: ATROVENT NEB INH SCH ×5 (02:38→21:32)
[2018-03-05] MEDS: XOPENEX NEB INH SCH ×4 (02:40→21:31)
[2018-03-05] MEDS: LOPRESSOR PO SCH ×3 (05:14→21:04)
[2018-03-05] MEDS: PRILOSEC PO SCH (06:20)
[2018-03-05] MEDS: HUMULIN R (PARKWAY) SUBQ SCH ×4 (06:21→20:58)
[2018-03-05 06:32] LABS: CALCIUM 8.7 mg/dL (8.8-10.2); CREATININE 1.7 mg/dL (0.7-1.2); POTASSIUM 4.9 mmol/L (3.5-5.1)
[2018-03-05] MEDS: ELIQUIS PO SCH ×2 (10:21→20:59)
[2018-03-05] MEDS: JANUVIA PO SCH (10:21)
[2018-03-05] MEDS: LASIX PO SCH (10:21)
[2018-03-05] MEDS: NORVASC PO SCH (10:22)
[2018-03-05] MEDS: ISORDIL PO SCH ×3 (10:22→18:37)
[2018-03-05] MEDS: APRESOLINE PO SCH ×3 (10:22→18:37)
--- NOTE | 2018-03-05 13:28 | PROGRESS NOTE ---
DATE: 03/05/2018 SUBJECTIVE: The patient reports breathing better than yesterday. No chest pain reported. No chest discomfort. No fever reported. OBJECTIVE: Vital Signs: Temperature 97.9, heart rate 64, respiratory rate 18, blood pressure 165/56, O2 saturation 100% 2 L nasal cannula. General examination: This is a chronically ill- looking, 77-year-old male, lying in bed in no acute distress. Cardiovascular exam: S1, S2 heard. No murmurs, gallops, or rubs. Regular rate and rhythm. Respiratory exam: Decreased air entry globally. No crackles or rhonchi noted in both pulmonary bases. Patient is not using any accessory muscles or having work of breathing. Abdomen: Soft, nontender to palpation. Bowel sounds present. No organomegaly. Extremities: No clubbing, cyanosis, or edema. Peripheral pulses present in both legs. Neurological exam: Patient is alert and oriented x3. Moves 4 extremities. Cranial nerves 2-12 grossly normal. LABORATORY DATA: BMP shows creatinine 1.7; rest of the BMP within normal limits. ASSESSMENT AND PLAN: 1. Acute systolic congestive heart failure with ejection fraction of 35%. At this point in time, patient looks to be euvolemic. The patient now is on Lasix oral 40 mg p.o. daily. I think he is stable from that standpoint. Cardiology is following. We will follow recommendations. 2. Hyponatremia. The sodium has dropped some today most likely secondary to diuretics. We will provide 1 more dose of Samsca and we will see how he does. 3. Chronic atrial fibrillation. Currently with the medication that he is receiving here in the hospital, heart rate is well controlled. We will continue to monitor this patient closely. 4. Chronic obstructive pulmonary disease, not in any exacerbation. We will provide breathing treatments if needed only. 5. Acute on chronic kidney disease stage III. Creatinine continues to be at baseline. We will continue to monitor basic metabolic panel while this patient is in the hospital. 6. Diabetes mellitus type 2. Patient is on sliding scale insulin and Accu-Chek before meals and also at bedtime. We will continue with same management. 7. Hypertension. Blood pressure is under control. Sometimes a little bit is above 150 and 160, but I think at this point we will continue with the same management. 8. Anemia of chronic disease. That condition is stable. We will continue to check complete blood count. DISPOSITION: I think this patient is euvolemic. I think this patient is stable. The patient requests to be sent to rehabilitation facility. So, we will put a consult for clinical social worker and await a rehabilitation bed for him. cc: Skip Powers MD
[2018-03-05] MEDS: TRESIBA FLEXTOUCH U-100 SUBQ SCH (20:58)
[2018-03-05] MEDS: LIPITOR PO SCH (20:59)
[2018-03-05] MEDS: MELATONIN PO SCH (20:59)
[2018-03-06] MEDS ORDERED: TYLENOL PO ONE (01:53)
[2018-03-06] MEDS: ATROVENT NEB INH SCH ×3 (04:01→15:33)
[2018-03-06] MEDS: XOPENEX NEB INH SCH ×3 (04:02→15:33)
[2018-03-06] MEDS: LOPRESSOR PO SCH ×2 (04:27→11:09)
[2018-03-06] MEDS: PRILOSEC PO SCH (06:07)
[2018-03-06] MEDS: HUMULIN R (PARKWAY) SUBQ SCH ×2 (06:40→13:26)
[2018-03-06 07:14] LABS: CALCIUM 8.6 mg/dL (8.8-10.2); CREATININE 1.6 mg/dL (0.7-1.2); POTASSIUM 4.4 mmol/L (3.5-5.1)
[2018-03-06] MEDS: NORVASC PO SCH (11:09)
[2018-03-06] MEDS: JANUVIA PO SCH (11:09)
[2018-03-06] MEDS: APRESOLINE PO SCH ×2 (11:09→13:25)
[2018-03-06] MEDS: LASIX PO SCH (11:10)
[2018-03-06] MEDS: ISORDIL PO SCH ×2 (11:10→13:26)
[2018-03-06] MEDS: ELIQUIS PO SCH (11:10)
--- NOTE | 2018-03-06 13:19 | DISCHARGE SUMMARY ---
ADMISSION DATE: 02/27/2018 DISCHARGE DATE: 03/06/2018 DISCHARGE DIAGNOSES: 1. Acute congestive heart failure and constipation. 2. Acute on chronic kidney disease stage 3. 3. Diabetes mellitus type 2. 4. Chronic atrial fibrillation. 5. Hypertension. 6. Dyslipidemia. CONSULTATIONS: Dr. Kidd from Cardiology. PROCEDURES: 1. Chest x-ray done on admission showed pulmonary edema with small bilateral pleural effusions. 2. Echocardiogram showed mild mitral regurgitation with mild tricuspid regurgitation with severe pulmonary hypertension by Doppler, mild left ventricular enlargement with estimated left ventricular ejection fraction of 35%. Left pleural effusion. 3. Chest x-ray done on 02/28/2018 showed no change from prior. Stable trace pleural effusion with no new infiltrates. HOSPITAL COURSE: This is a 77-year-old male who presented to the emergency department at [facility] complaining of 3 days history of shortness of breath, nonproductive cough and bilateral lower extremity edema. The patient admitted to the hospital for CHF exacerbation. Patient was started on Lasix and we have monitored ins and outs strictly. Patient started to improve with less shortness of breath. Breathing better. Regarding chronic atrial fibrillation, that condition was stable with heart rate less than 100. Also, for hyponatremia that has dropped some. We provide Samsca and sodium was corrected. For acute on chronic kidney disease stage 3, creatinine has remained stable. For diabetes mellitus, type 2 , the patient has being on Accu-Cheks before meals and also at bedtime and sliding scale insulin. Hypertension has been under control. So at this point, patient is medically stable. He is going to be transferred to a rehab facility. DISCHARGE PHYSICAL EXAMINATION: Vital Signs: Temperature 97.9 degrees, heart rate 60, respiratory rate 18, blood pressure 156/59, O2 sat 100% 2 L nasal cannula. General: This is a chronically ill-looking 77-year-old male, lying in bed, in no acute distress. HEENT: Head is normocephalic, atraumatic. Neck: No JVD noted. No carotid bruits. No lymphadenopathy. No thyromegaly. Cardiovascular: S1, S2 heard. No murmurs, gallops or rubs. Regular rate and rhythm. Respiratory: Clear bilaterally to auscultation. No work of breathing or using accessory muscles. Abdomen: Soft, nontender to palpation. Bowel sounds present. No organomegaly. Extremities: No clubbing, cyanosis or edema. Peripheral pulses present in both legs. Neurologic: Patient alert and oriented x 3. Moves 4 extremities. DISCHARGE DISPOSITION: Home to self-care. FOLLOWUP: 1. Follow up with Dr. Arturo Galeano in 1 week after patient discharged rehab. 2. Follow up with Dr. Palma from Cardiology in 4 to 5 weeks. LIST OF MEDICATIONS: 1. Apixaban 2.5 mg 1 tablet p.o. twice daily. 2. Lasix 40 mg 1 tablet p.o. daily. 3. Hydralazine 10 mg 1 tablet p.o. 3 times per day. 4. Toprol XL 50 mg 1 tablet p.o. daily. 5. Omeprazole 40 mg 1 tablet p.o. daily. 6. Isordil 5 mg 1 tablet p.o. 3 times per day. 7. Insulin Degludec 20 units subcutaneous daily TIME DISCHARGE: 33 minutes. cc: Skip Powers MD MTDD
[2018-03-06 16:10] VITALS: BP 143/51
== END 2018-03-06 16:30 | DRG 291 ==
LOC: P.ED 20:48 → P.MEDSURG 20:48 → SUATTDRO 02-27 00:30
PROVIDERS: ATTEND Internal Medicine
CPT/HCPCS: 71010; 71020; 71045; 71046; 80048; 80053; 80061; 82550; 82553; 82948; 83735; 83880; 84484; 85025; 85610; 85730; 93005; 93306; 94640; 94668; 94761; 96374; 97163; 97530; 99285; A9270; J1815; J1940; J2020; J2543; J2920; J7030; XXXXX